=== PATIENT | male | born 1960 | race Two or more races ===

== ENCOUNTER 2019-06-24 10:12 | Emergency (ER) | payer SELFPAY ==
[~2019-06-24] VITALS: Ht 177.8 cm; Wt 99.8 kg
[2019-06-24] MEDS ORDERED: ASPIRIN 81 MG TAB.CHEW PO ONE (10:45)
[2019-06-24 10:56] LABS: BASO # 0.1 x10^3/uL (0.0-0.2); BASO % 1 % (0-3); EOS # 0.2 x10^3/uL (0.0-0.7); EOS % 3 % (0-3); HEMATOCRIT 48.8 % (39.0-53.0); LYMPH # 2.1 x10^3/uL (1.0-4.8); LYMPH % 28 % (24-48); MEAN CORPUSCULAR HEMOGLOBIN 30 pg (25-35); MEAN CORPUSCULAR HGB CONC 35 g/dL (31-37); MEAN CORPUSCULAR VOLUME 85 fL (79-100); MONO # 0.8 x10^3/uL (0.0-1.1); MONO % 11 % (0-9); NEUT # 4.3 x10^3uL (1.8-7.7); NEUT % 58 % (31-73); PLATELET COUNT 210 x10^3/uL (140-400); RED BLOOD COUNT 5.75 x10^6/uL (4.30-5.70); RED CELL DISTRIBUTION WIDTH 12.6 % (11.5-14.5); WHITE BLOOD COUNT 7.5 x10^3/uL (4.0-11.0)
--- NOTE | 2019-06-24 10:56 | EKG ---
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
--- NOTE | 2019-06-24 11:04 | RAD ---
EXAM: Chest, single view. HISTORY: Chest pain. COMPARISON: None. FINDINGS: A frontal view of the chest obtained. There is no infiltrate, pleural effusion or pneumothorax. The heart is normal in size. IMPRESSION: No acute pulmonary finding. Electronically signed by: Ethel Oliveira MD (06/24/2019 11:01 AM) [facility]
[2019-06-24 11:08] LABS: ALBUMIN 3.6 g/dL (3.4-5.0); ALBUMIN/GLOBULIN RATIO 0.9 (1.0-1.7); CALCIUM 9.1 mg/dL (8.5-10.1); CREATININE 0.9 mg/dL (0.7-1.3); TOTAL BILIRUBIN 0.8 mg/dL (0.2-1.0); TOTAL PROTEIN 7.7 g/dL (6.4-8.2)
[2019-06-24 11:12] LABS: POTASSIUM 2.9 mmol/L (3.5-5.1)
[2019-06-24] MEDS ORDERED: KETOROLAC 30 MG/ML VIAL. IVP ONE (11:15)
[2019-06-24] MEDS ORDERED: cloNIDine HCL 0.1 MG TABLET PO ONE (11:15)
[2019-06-24] MEDS ORDERED: HYDROCORTISONE ACETATE 25 MG SUPP.RECT PR ONE (11:15)
[2019-06-24] MEDS ORDERED: POTASSIUM CHLORIDE 20 MEQ TABLET.ER. PO ONE (11:15)
--- NOTE | 2019-06-24 11:17 | PHYS DOC ---
Past History Past Medical History: Hypertension Past Surgical History: Other Additional Past Surgical Histo: HERNIA X 2 Alcohol Use: None Drug Use: None Adult General Chief Complaint Chief Complaint: ABSCESS HPI HPI Patient is a 58-year-old male who presents with numerous complaints to include severe rectal pain that started yesterday. Patient states that he has had some mild discomfort for the last few days and has been using Preparation H without improvement. He states that yesterday the pain had gotten much worse and today it's even worse. He rates that pain at a 9 out of 10. He also complains of pain in his left upper chest that he describes a sharp and stabbing in nature. He does indicate the pain is worsened with deep breathing, palpation and movements. He denies any significant cough and has had no shortness of breath.[] Review of Systems Review of Systems Constitutional: Denies fever or chills [] Respiratory: Denies cough or shortness of breath [] Cardiovascular: No additional information not addressed in HPI [] GI: Denies abdominal pain, nausea, vomiting or diarrhea. Complains of rectal pain. [] Integument: Denies rash or skin lesions [] Neurologic: Denies headache, focal weakness or sensory changes [] All other systems were reviewed and found to be within normal limits, except as documented in this note. Current Medications Current Medications Current Medications Medications (Trade) Dose Ordered Sig/Freddie Start Time Stop Time Status Last Admin Dose Admin Aspirin (Children'S Aspirin) 324 mg 1X ONCE 06/24/19 10:45 06/24/19 10:46 DC 06/24/19 10:52 324 MG Allergies Allergies Allergies Coded Allergies Type Severity Reaction Last Updated Verified No Known Drug Allergies 06/24/19 No Physical Exam Physical Exam Constitutional: Well developed, well nourished, no acute distress, non-toxic appearance. [] HENT: Normocephalic, atraumatic, bilateral external ears normal, oropharynx moist, no oral exudates, nose normal. [] Eyes: PERRLA, EOMI, conjunctiva normal, no discharge. [] Neck: Normal range of motion, no tenderness, supple, no stridor. [] Cardiovascular: Regular rate and rhythm[] Lungs & Thorax: Bilateral breath sounds clear to auscultation [] Abdomen: Bowel sounds normal, soft, no tenderness. Rectal exam demonstrates moderate sized thrombosed external hemorrhoid, measuring approximately 2 cm x 1 cm area [] Skin: Warm, dry, no erythema, no rash. [] Extremities: No tenderness, no cyanosis, no clubbing, ROM intact. [] Neurologic: Alert and oriented X 3, no focal deficits noted. [] Current Patient Data Vital Signs Vital Signs Date Time Temp Pulse Resp B/P (MAP) Pulse Ox O2 Delivery O2 Flow Rate FiO2 06/24/19 10:51 81 20 164/123 (137) 97 Room Air 06/24/19 10:15 97.8 Lab Results Laboratory Tests Test 06/24/19 10:40 White Blood Count 7.5 x10^3/uL (4.0-11.0) Red Blood Count 5.75 x10^6/uL (4.30-5.70) H Hemoglobin 17.0 g/dL (13.0-17.5) Hematocrit 48.8 % (39.0-53.0) Mean Corpuscular Volume 85 fL (79-100) Mean Corpuscular Hemoglobin 30 pg (25-35) Mean Corpuscular Hemoglobin Concent 35 g/dL (31-37) Red Cell Distribution Width 12.6 % (11.5-14.5) Platelet Count 210 x10^3/uL (140-400) Neutrophils (%) (Auto) 58 % (31-73) Lymphocytes (%) (Auto) 28 % (24-48) Monocytes (%) (Auto) 11 % (0-9) H Eosinophils (%) (Auto) 3 % (0-3) Basophils (%) (Auto) 1 % (0-3) Neutrophils # (Auto) 4.3 x10^3uL (1.8-7.7) Lymphocytes # (Auto) 2.1 x10^3/uL (1.0-4.8) Monocytes # (Auto) 0.8 x10^3/uL (0.0-1.1) Eosinophils # (Auto) 0.2 x10^3/uL (0.0-0.7) Basophils # (Auto) 0.1 x10^3/uL (0.0-0.2) D-Dimer (Joycelyn) 0.40 mg/L (0.00-0.50) EKG EKG EKG demonstrates normal sinus rhythm with rate of 65.[] Radiology/Procedures Radiology/Procedures [] Impressions: PROCEDURE: PORTABLE CHEST 1V EXAM: Chest, single view. HISTORY: Chest pain. COMPARISON: None. FINDINGS: A frontal view of the chest obtained. There is no infiltrate, pleural effusion or pneumothorax. The heart is normal in size. IMPRESSION: No acute pulmonary finding. Electronically signed by: Ethel Oliveira MD (06/24/2019 11:01 AM) [facility] Course & Med Decision Making Course & Med Decision Making Pertinent Labs and Imaging studies reviewed. (See chart for details) [] Dragon Disclaimer Dragon Disclaimer This electronic medical record was generated, in whole or in part, using a voice recognition dictation system. Departure Departure: Impression: Primary Impression: Hypertension Additional Impressions: New onset type 2 diabetes mellitus Thrombosed external hemorrhoid Costochondritis Disposition: HOME, SELF-CARE Condition: STABLE Referrals: PCP,NO (PCP) Patient Instructions: Costochondritis, Hemorrhoids, Hypertension, Type 2 Diabetes Mellitus, Adult Scripts Hydrocortisone (ANUSOL-HC) 30 Gm Cream..g. 1 ANA TP BID PRN for rectal pain, #30 GM 0 Refills Prov: ALEXX JIN Jr. DO 06/24/19 Hydrocodone Bit/Acetaminophen (NORCO 5-325 TABLET) 1 Each Tablet 1 TAB PO PRN Q6HRS PRN for PAIN, #12 TAB 0 Refills Prov: ALEXX JIN Jr. DO 06/24/19 Metformin Hcl (METFORMIN HCL) 500 Mg Tablet 1 TAB PO BID for high blood sugar, #60 TAB Prov: ALEXX JIN Jr. DO 06/24/19 Lisinopril (LISINOPRIL) 10 Mg Tablet 10 MG PO DAILY for FOR HYPERTENSION, #30 TAB 0 Refills Prov: ALEXX JIN Jr. DO 06/24/19 Problem Qualifiers Primary Impression: Hypertension Hypertension type: essential hypertension Qualified Codes: I10 - Essential (primary) hypertension ALEXX JIN Jr. DO Jun 24, 2019 11:17
[2019-06-24] MEDS ORDERED: LISI10TA2 PO (12:02)
[2019-06-24] MEDS ORDERED: HYDR30CR61 TP (12:02)
[2019-06-24] MEDS ORDERED: HYDR-3165 PO (12:02)
[2019-06-24] MEDS ORDERED: METF500T16 PO (12:02)
[2019-06-24 12:05] VITALS: BP 162/106
== END 2019-06-24 12:08 | disposition home or self-care (01) ==
LOC: ER 10:12
DX: K64.5 Perianal venous thrombosis (principal); I10 Essential (primary) hypertension; E11.8 Type 2 diabetes mellitus with unspecified complications; M94.0 Chondrocostal junction syndrome [Tietze]
CPT/HCPCS: 36415; 71045; 80053; 84484; 85025; 85379; 93005; 96374; 99285; J1885